=== PATIENT | female | born 1980 | race Hispanic/Latino ===

== ENCOUNTER 2024-10-17 05:40 | Day surgery (SDC) | payer OTHER ==
[~2024-10-17] VITALS: Ht 162.6 cm; Wt 80.9 kg
[~2024-10-17 05:40] MED LIST: LACTATED RINGER'S 1,000 ML IV SCH; NEURONTIN300 MG PO; PHENTERMINE H37.5 M1 PO
[2024-10-17 06:04] VITALS: BP 154/97
[2024-10-17] MEDS ORDERED: TYLENOL EXTRA500 MG PO (06:06)
[2024-10-17] MEDS ORDERED: KETOROLAC TROMETHAMINE 30 MG/ML VIAL ONE ×2 (06:52→08:00)
[2024-10-17] MEDS ORDERED: BUPIVACAINE HCL 0.25% 50 ML MDV ONE (06:52)
[2024-10-17] MEDS ORDERED: propofoL 200 MG/20 ML VIAL ONE (06:54)
[2024-10-17] MEDS ORDERED: MIDAZOLAM HCL 2 MG/2 ML VIAL ONE (06:54)
[2024-10-17] MEDS ORDERED: Ropivacaine HCl 0.5% 30 ML VIAL ONE (06:54)
[2024-10-17] MEDS ORDERED: fentaNYL citrate 100 MCG/2 ML VIAL ONE (06:54)
[2024-10-17] MEDS ORDERED: dexmedeTOMIDine HCl 200 MCG/2 ML VIAL ONE (06:54)
[2024-10-17] MEDS ORDERED: LIDOCAINE HCL 2% 20 MG/ML VIAL INJ ONE (06:55)
[2024-10-17] MEDS ORDERED: ondansetron HCL 4 MG/2 ML VIAL ONE (06:57)
[2024-10-17] MEDS ORDERED: TRANEXAMIC ACID IN NACL,ISO-OS 1,000 MG/100 ML PIGGYBACK IV SCH (07:00)
[2024-10-17] MEDS ORDERED: IBLOOD GLUCOSE TEST STRIP 1 EA TEST VI PRN ×2 (07:00→07:45)
[2024-10-17] MEDS ORDERED: LIDOCAINE HCL 1% 5 ML SDV INJ ONE (07:00)
[2024-10-17] MEDS ORDERED: CEFAZOLIN SODIUM 2 GM/20 ML SYR IV SCH (07:00)
[2024-10-17] MEDS ORDERED: DEXAMETHASONE SOD PHOS 4 MG/ML VIAL ONE (07:39)
[2024-10-17] MEDS ORDERED: droPERidol 5 MG/2 ML VIAL IV PRN (07:45)
[2024-10-17] MEDS ORDERED: HYDROmorphone HCL 1 MG/ML SYR IV PRN (07:45)
[2024-10-17] MEDS ORDERED: NALOXONE HCL 0.4 MG SYR IV PRN (07:45)
[2024-10-17] MEDS ORDERED: ondansetron HCL 4 MG/2 ML VIAL IV PRN (07:45)
[2024-10-17] MEDS ORDERED: fentaNYL citrate 50 MCG/ML SDV IV PRN (07:45)
[2024-10-17] MEDS ORDERED: PROCHLORPERAZINE EDISYLATE 10 MG/2 ML VIAL IV PRN (07:45)
[2024-10-17] MEDS ORDERED: HYDROCODONE/ACETA 7.5/325 TAB PO PRN (08:00)
[2024-10-17] MEDS ORDERED: KETOROLAC TROMETHAMINE 15 MG/ML VIAL IV PRN (08:00)
[2024-10-17] MEDS ORDERED: DICLOFENAC SODI75 MG PO (08:02)
[2024-10-17] MEDS ORDERED: HYDROCODON-ACE1 EA11 PO (08:02)
--- NOTE | 2024-10-17 08:19 | NUR ---
10/17/24 0819 Ya Garcia 0807 PT TO PACU SLEEPY BUT AROUSABLE DENIES PAIN REPORTS FEELING NAUSEOUS. WIL WIGGINS.
[2024-10-17 08:50] VITALS: BP 121/67
--- NOTE | 2024-10-17 08:53 | NUR ---
0845- PT ARRIVES FROM PACU. BED IS LOCKED IN THE LOWEST POSITION AND CALL LIGHT IN REACH. BEDSIDE REPORT RECIEVED FROM SPENCER MARTIN. SURGICAL SITES ASSESSED TOGETHER, THAT ARE CDI. PT HAS CRYOCUFF IN PLACE AND PLUGGED IN. PT DENIES PAIN AND NAUSEA. PT REQUESTING PUDDING AND APPLE JUICE THAT WILL BE PROVIDED. DISCHARGE CRITERIA DISCUSSED AND PT IS UNDERSTANDING.
[2024-10-17] MEDS ORDERED: DICLOFENAC SOD 75 MG TABEC PO SCH ×2 (09:00→21:00)
[2024-10-17 09:20] VITALS: BP 134/69
[2024-10-17 10:20] VITALS: BP 134/69
--- NOTE | 2024-10-17 10:26 | OR ---
[facility] [address], [place] [address] Signed DATE OF OPERATION: 10/17/2024 SURGEON: Nat Garcia MD PREOPERATIVE DIAGNOSIS: Impingement, right shoulder. POSTOPERATIVE DIAGNOSIS: Impingement, right shoulder. PROCEDURE PERFORMED: Right shoulder arthroscopy with subacromial decompression. BIOCHEMISTRY TECHNOLOGIST: Shy Smith PA-C. Shy was present and critical for all portions of procedure. ANESTHESIA: General. BLOOD LOSS: Minimal. TOURNIQUET TIME: None. BRIEF HISTORY: Jesus is a 44-year-old female with progressive worsening of shoulder pain despite physical therapy, injections, oral anti-inflammatories. She was unable to progress. Risks and benefits of operative treatment were discussed with her and she elected to proceed. Once consent was obtained she was taken to the operating room. After adequate anesthesia, she was placed in a beach chair position. All downside pressure points were well padded. The right shoulder was then prepped and draped in a standard sterile fashion. The shoulder was injected with 15 mL of 0.25% Marcaine with epinephrine as was the subacromial space. Standard posterior portal was made. The scope was introduced in the shoulder. ARTHROSCOPIC FINDINGS: The biceps, biceps anchor and labrum were noted to be intact. There was a normal sublabral Awan superior laterally. The glenohumeral surfaces were intact. Electronically Signed By: NAT GARCIA MD 10/17/24 1026 PATIENT NAME: JESUS JERRY OPERATIVE REPORT DATE OF : 80 REPORT #: [id number] PHYSICIAN: NAT GARCIA MD PCP: DAYTON DOHERTY DO REPORT IS CONFIDENTIAL AND NOT TO BE RELEASED WITHOUT AUTHORIZATION [facility] [address] [place] [address] [place], [place] [address] Signed Undersurface of the rotator cuff was intact. The subacromial bursa showed moderate bursitis throughout with little bit of inflammation in the infraspinatus. DESCRIPTION OF OPERATION: Diagnostic arthroscopy was undertaken as noted above. Standard anterior portal was made and the labral foramen was carefully visualized. The biceps and the undersurface of the rotator cuff were palpated. Scope was then withdrawn, placed in subacromial space a standard lateral portal was made. Using a combination of the Mytek Vapor and the shaver, we were able to remove the bursa to allow good visualization of the rotator cuff and the undersurface of the acromion, which was type 1. The bursa was completely cleared out. All bleeders were cauterized. We were unable to locate any significant rotator cuff tear. The scope was then withdrawn. Portals were closed with 3-0 nylon and the shoulder was injected with 60 mL of Toradol and the shoulder were dressed with Allevyn and Opsite's. She tolerated the procedure well. All sponge, needle, and instrument counts were correct. Nat Garcia MD BA/ELKE /[id number] Copies: ~ Electronically Signed By: NAT GARCIA MD 10/17/24 1026 PATIENT NAME: JESUS JERRY OPERATIVE REPORT DATE OF : 80 REPORT #: [id number] PHYSICIAN: NAT GARCIA MD PCP: DAYTON DOHERTY DO REPORT IS CONFIDENTIAL AND NOT TO BE RELEASED WITHOUT AUTHORIZATION
--- NOTE | 2024-10-17 11:49 | NUR ---
0935- PT IS UP TO USE THE RESTROOM. PT IS ABLE TO VOID 200ML OF URINE AND SAFELY RETURN TO ROOM, WITH ASSISTANCE FROM SPENCER GARCIA. 1000- PT ASKING TO GET DRESSED WITH THE ASSISTANCE OF HER . PT IS ABLE TO GET DRESSED WITH NO ISSUES. 1020- VITAL SIGNS OBTAINED. DISCHARGE CRITERIA DISCUSSED AND QUESTIONS AND CONCERNS ANSWERED. PT HAS ALL BELONGINGS. 1042- PT IS ABLE TO AMBULATE TO WHEELCHAIR WITH ALL BELONGINGS AND EDUCATION. PT IS PROPELLED OUT OF DAY SURGERY WITH NO QUESTIONS OR CONCERNS. PT IS ABLE TO FAMIL VEHICLE WITH NO ISSUES.
[2024-10-17] MEDS ORDERED: SEVOFLURANE 250 ML BTL INH ONE (11:57)
== END 2024-10-17 10:42 | disposition home or self-care (01) ==
LOC: DS 05:40
PROVIDERS: ATTEND Specialist
PROC: 0RBJ4ZZ Excision of Right Shoulder Joint, Percutaneous Endoscopic Approach (ICD-10-PCS; principal; 2024-10-17 07:00)
DX: M25.811 Other specified joint disorders, right shoulder (principal); M75.01 Adhesive capsulitis of right shoulder; Z79.899 Other long term (current) drug therapy; Z98.84 Bariatric surgery status; X58.XXXA Exposure to other specified factors, initial encounter
CPT/HCPCS: 01630; J0690; J1100; J1885; J2250; J2405; J2704; J2795; J3010; J7121